=== PATIENT | female | born 1970 | race Caucasian/White ===

== ENCOUNTER 2024-02-02 06:12 | Inpatient (IN) | payer BC ==
[2024-02-01 13:10] LABS: Basophils # (auto) 0 10 ^3/uL (0-0.2); Basophils % (auto) 0.5 % (0.0-2.0); Eosinophils # (auto) 0 10 ^3/uL (0-0.8); Eosinophils % (auto) 0.5 % (0.0-7.0); Hematocrit 45.9 % (36.0-46.0); Hemoglobin 15.4 g/dL (12.2-16.2); Lymphocytes # (auto) 2.7 10 ^3/uL (0.4-5.4); Lymphocytes % (auto) 46.1 % (10.0-50.0); Mean Corpuscular Hemoglobin 31.6 pg (28.0-32.0); Mean Corpuscular Hgb Conc. 33.7 g/dL (32.0-36.0); Mean Corpuscular Volume 93.8 fL (80.0-100.0); Monocytes # (auto) 0.5 10 ^3/uL (0-1.3); Monocytes % (auto) 8.4 % (0.0-12.0); Neutrophils # (auto) 2.6 10 ^3/uL (1.6-8.6); Neutrophils % (auto) 44.5 % (37.0-80.0); Nucleated Red Blood Cells % 0.2 %; Red Blood Cells 4.89 10^6/uL (4.0-5.20); Red Cell Distribution Width 13.6 % (11.8-14.3); White Blood Cell 5.9 10^3/uL (4.4-10.8)
[2024-02-01 13:15] LABS: Urine Bacteria FEW /hpf (None Seen); Urine Blood Negative /uL (Negative); Urine Budding Yeast OCCASIONAL /hpf (None Seen); Urine Clarity Turbid (Clear); Urine Color Yellow (Yellow); Urine Mucus FEW (None Seen); Urine Protein, UAD 1+ (Negative); Urine Specific Gravity 1.023 (1.001-1.035); Urine Urobilinogen Normal (Negative); Urine WBC 1 /hpf (0 - 5); Urine pH 5.5 (5.0-9.0)
[2024-02-01 13:17] LABS: INR 1.03 (0.9-1.15); Partial Thromboplastin Time 29.1 SEC (24.5-34.5); Prothrombin Time 10.8 sec (9.3-11.8)
[2024-02-01 14:16] LABS: Alanine Aminotransferase 23 U/L (7-40); Albumin 4.8 g/dL (3.2-4.8); Alkaline Phosphatase 33 U/L (46-116); Anion Gap 11 (5-15); Aspartate Aminotransferase 20 U/L (13-40); BUN/Creatinine Ratio 12.9 (10.0-20.0); Bilirubin, Total 0.6 mg/dL (0.2-1.0); Blood Urea Nitrogen 13 mg/dL (9-23); Calcium 10.1 mg/dL (8.5-10.1); Carbon Dioxide 23 mmol/L (20-30); Chloride 104 mmol/L (98-107); Glucose 101 mg/dL (74-106); Potassium 3.7 mmol/L (3.5-5.1); Sodium 138 mmol/L (136-145); Total Protein 7.4 g/dL (5.7-8.2)
[~2024-02-02] VITALS: Ht 165.1 cm; Wt 85.6 kg
[~2024-02-02 06:12] MED LIST: ATOR20TA PO; BACL10TA PO; CALCCHW53 OR; CELE1CAP PO; CYAN-37 PO; CYCL-839 PO; LEVO137C3 PO; OME20T PO; OMEG-20 PO
[2024-02-02] MEDS: ceFAZolin 2 GM/D5W50ml 50 ML IV ONE (06:21)
[2024-02-02] MEDS: MAGNESIUM SULFATE 1GM/100ML 100 ML IV ONE (06:31)
[2024-02-02] MEDS: LIDOCAINE 4MG/ML IV SOLN 500 ML IV ONE (06:31)
[2024-02-02] MEDS: TRANEXAMIC ACID 20 ML ONE (06:33)
[2024-02-02] MEDS ORDERED: LIDOCAINE 2% TOPICAL JELLY 5 ML URJT TOP ONE (06:43)
[2024-02-02] MEDS ORDERED: KETAMINE 50mg/ML 1ml syringe ONE (06:49)
[2024-02-02] MEDS ORDERED: fentaNYL CITRATE 100 MCG/2 ML VL ONE (06:49)
[2024-02-02] MEDS ORDERED: ONDANSETRON HCL 4 MG/2 ML VIAL ONE (06:50)
[2024-02-02] MEDS ORDERED: ROCURONIUM 10MG/ML 10ML VIAL IV ONE (06:50)
[2024-02-02] MEDS ORDERED: PROPOFOL 10 MG/ML 20 ML IV ONE ×2 (06:50→08:47)
[2024-02-02] MEDS ORDERED: GLYCOPYRROLATE 0.2 MG/ML 1ML VIAL ONE (06:50)
[2024-02-02] MEDS ORDERED: SUGAMMADEX 200mg/2ml Vial (100MG/ML) IV ONE (06:50)
[2024-02-02] MEDS ORDERED: DexAMETHasone SOD PHOS 10MG/1ML VIAL INJ ONE (06:50)
[2024-02-02] MEDS: LIDOCAINE 2%HCL (LOCAL ANESTH.) INJ 10ml MDV ONE (06:57)
[2024-02-02] MEDS: ACETAMINOPHEN IV 1000 MG/100ML (10MG/ML) IV ONE (07:10)
[2024-02-02] MEDS: GABAPENTIN 400 MG CAP PO ONE (07:14)
[2024-02-02] MEDS: oxyCODONE ER 10 MG TAB PO ONE (07:14)
[2024-02-02] MEDS: levoFLOXacin 750MG 150 ML IV ONE (07:15)
[2024-02-02] MEDS ORDERED: SODIUM CHLORIDE LOCK 10 ML ONE ×2 (07:37→07:46)
[2024-02-02] MEDS ORDERED: PHENYLEPHRINE HCL 10 MG/ML VL ONE (07:37)
[2024-02-02] MEDS: BACITRACIN TOP OINT 1 UD PKG TOP ONE (09:26)
[2024-02-02] MEDS ORDERED: MORPHINE SULFATE INJ 2 MG/ml SYRG IV PRN (09:45)
[2024-02-02] MEDS ORDERED: ACETAMINOPHEN 325 MG TAB PO PRN (09:45)
[2024-02-02] MEDS: DexAMETHasone SOD PHOS 10MG/1ML VIAL INJ IV ONE (09:45)
[2024-02-02] MEDS ORDERED: NITROGLYCERIN 0.4 MG SL TAB SL PRN (09:45)
[2024-02-02 09:50] VITALS: O2SAT 100
[2024-02-02] MEDS: DOCUSATE SOD 100 MG CAP PO SCH (10:00)
[2024-02-02] MEDS ORDERED: ONDANSETRON HCL 4 MG/2 ML VIAL IV PRN (10:15)
[2024-02-02] MEDS ORDERED: oxyCODONE HCL 5MG TAB PO PRN (10:15)
[2024-02-02] MEDS ORDERED: LABETALOL HCL 5 MG/ML 4ML SYRINGE IV PRN (10:15)
[2024-02-02] MEDS ORDERED: hydrALAZINE HCL 20 MG/ML VL IV PRN (10:15)
[2024-02-02] MEDS ORDERED: ePHEDrine SULFATE 50 MG/ML AMP IV PRN (10:15)
[2024-02-02] MEDS ORDERED: NALOXONE HCL 0.4 MG/ML VIAL IV PRN (10:15)
[2024-02-02] MEDS ORDERED: fentaNYL CITRATE 100 MCG/2 ML VL IV PRN (10:15)
[2024-02-02] MEDS ORDERED: FLUMAZENIL 0.1 MG/ML INJ 10ML MDV IV PRN (10:15)
[2024-02-02] MEDS: HYDROmorphone HCL 2 MG/ML VL/or syr IV PRN (10:46)
[2024-02-02] MEDS: CYCLOBENZAPRINE HCL 10 MG TAB PO SCH (11:25)
[2024-02-02 13:23] VITALS: BP 112/66; PULSE 88; RESP 18; TEMP 97.8; O2SAT 96
[2024-02-02 13:30] VITALS: BP 131/81; PULSE 74; RESP 18; TEMP 98.1; O2SAT 94
[2024-02-02] MEDS ORDERED: ceFAZolin 1GM/50ML 50 ML IV SCH (14:00)
[2024-02-02 16:00] VITALS: BP 135/86; PULSE 92; RESP 16; TEMP 98.1; O2SAT 92
[2024-02-02] MEDS: D5W/SOD CHLO 0.9% 1,000 ML IV SCH (16:51)
[2024-02-02] MEDS: ceFAZolin 1GM/50ML 50 ML IV SCH (16:51)
[2024-02-02] MEDS: HYDROcodone-ACET 10/325MG TAB PO PRN (17:36)
[2024-02-02 20:00] VITALS: PULSE 95; RESP 20; O2SAT 97
[2024-02-02 22:00] VITALS: BP 125/71; PULSE 84; RESP 20; TEMP 98.1; O2SAT 97
[2024-02-02] MEDS: ONDANSETRON HCL 4 MG/2 ML VIAL IV PRN (23:56)
[2024-02-02] MEDS: MORPHINE SULFATE INJ 2 MG/ml SYRG IV PRN (23:57)
[2024-02-03 01:00] VITALS: BP 116/61; PULSE 68; RESP 16; TEMP 98.8; O2SAT 98
[2024-02-03 05:00] VITALS: BP 140/75; PULSE 79; RESP 17; TEMP 98.7; O2SAT 95
[2024-02-03 08:00] VITALS: PULSE 110; PULSE 81; RESP 20; O2SAT 96
[2024-02-03 08:32] VITALS: BP 134/74; PULSE 110; RESP 18; TEMP 98.2; O2SAT 94
[2024-02-03] MEDS ORDERED: HYDR-4798 PO (09:36)
[2024-02-03] MEDS ORDERED: CYCL-611 PO (09:36)
[2024-02-03] MEDS ORDERED: DOCU-265 PO (09:36)
[2024-02-03 12:39] VITALS: BP 133/71; PULSE 83; RESP 16; TEMP 98.3; O2SAT 96
== END 2024-02-03 13:05 | disposition home or self-care (01) | DRG 518 ==
LOC: SUR 06:12 → TELE 09:36 → TELE-WESTW 12:53
PROVIDERS: ADMIT Orthopaedic Surgery; ATTEND Orthopaedic Surgery
PROC: 0RR30JZ Replacement of Cervical Vertebral Disc with Synthetic Substitute, Open Approach (ICD-10-PCS; 2024-02-02)
PROC: 00NW0ZZ Release Cervical Spinal Cord, Open Approach (ICD-10-PCS; 2024-02-02)
PROC: 0RB30ZZ Excision of Cervical Vertebral Disc, Open Approach (ICD-10-PCS; 2024-02-02)
PROC: 01N10ZZ Release Cervical Nerve, Open Approach (ICD-10-PCS; principal; 2024-02-02 07:27)
DX: M48.02 Spinal stenosis, cervical region (principal); M48.062 Spinal stenosis, lumbar region with neurogenic claudication; E89.0 Postprocedural hypothyroidism; M50.121 Cervical disc disorder at C4-C5 level with radiculopathy; Z98.51 Tubal ligation status
CPT/HCPCS: 36415; 72040; 76000; 80053; 81001; 85025; 85610; 85730; 86850; 86900; 86901; 97163; G0378; J0131; J1100; J2001; J2405; J2704; J7042

== ENCOUNTER 2024-02-04 00:18 | Emergency (ER) | payer BC ==
[~2024-02-04] VITALS: Ht 165.1 cm; Wt 82.3 kg
[~2024-02-04 00:18] MED LIST changes: +CYCL-611 PO; +DOCU-265 PO; +HYDR-4798 PO
[2024-02-04 03:49] LABS: Basophils # (auto) 0 10 ^3/uL (0-0.2); Basophils % (auto) 0.2 % (0.0-2.0); Eosinophils # (auto) 0 10 ^3/uL (0-0.8); Eosinophils % (auto) 0.1 % (0.0-7.0); Hematocrit 41.8 % (36.0-46.0); Hemoglobin 13.9 g/dL (12.2-16.2); Lymphocytes # (auto) 2.1 10 ^3/uL (0.4-5.4); Lymphocytes % (auto) 21.4 % (10.0-50.0); Mean Corpuscular Hemoglobin 31.2 pg (28.0-32.0); Mean Corpuscular Hgb Conc. 33.2 g/dL (32.0-36.0); Mean Corpuscular Volume 94.1 fL (80.0-100.0); Monocytes % (auto) 10.5 % (0.0-12.0); Neutrophils # (auto) 6.7 10 ^3/uL (1.6-8.6); Neutrophils % (auto) 67.8 % (37.0-80.0); Red Blood Cells 4.44 10^6/uL (4.0-5.20); White Blood Cell 9.9 10^3/uL (4.4-10.8)
[2024-02-04 03:59] LABS: Chloride 106 mmol/L (98-107); Sodium 138 mmol/L (136-145)
[2024-02-04 04:00] LABS: Anion Gap 5 (5-15); Carbon Dioxide 27 mmol/L (20-30)
[2024-02-04 04:01] LABS: Calcium 9.8 mg/dL (8.7-10.4)
[2024-02-04 04:05] LABS: Blood Urea Nitrogen 6 mg/dL (9-23); Glucose 109 mg/dL (74-106)
[2024-02-04] MEDS: LORazepam 2MG/ML-1ML VIAL IV ONE (04:56)
[2024-02-04] MEDS: DexAMETHasone SOD PHOS 10MG/1ML VIAL INJ IV ONE (05:32)
[2024-02-04 05:52] VITALS: BP 141/72; PULSE 105; RESP 20; TEMP 98.4; O2SAT 96
== END 2024-02-04 05:51 | disposition home or self-care (01) ==
LOC: ER 00:18
DX: G89.18 Other acute postprocedural pain (principal); M54.2 Cervicalgia; F41.8 Other specified anxiety disorders; Z90.89 Acquired absence of other organs; Z90.710 Acquired absence of both cervix and uterus; Z79.899 Other long term (current) drug therapy
CPT/HCPCS: 36415; 80048; 85025; 96374; 96375; 99284; J1100; J2060